=== PATIENT | male | born 1995 | race African-American/Black ===

== ENCOUNTER 2025-03-15 14:51 | Inpatient (IN) | payer MEDICAID ==
[~2025-03-15] VITALS: Ht 172.7 cm; Wt 113.6 kg
--- NOTE | 2025-03-15 15:13 | Physician Documentation ---
History of Present Illness ~ Chief Complaint: Seizure Stated Complaint: SEIZURE Time Seen by MD: 15:01 OK to notify your PCP?: Yes Source: patient Mode of Arrival: POV Exam Limitations: no limitations HPI Patient presents via EMS after witnessed seizure-like activity lasting approximately 10 seconds. He admits to smoking marijuana but no other drug use. No history of seizures. Was combative in ambulance. On arrival awake and alert, confused. Patient does not remember motion any events from today. Unable to answer further questions. Medication Reconciliation Allergies: Coded Allergies: No Known Allergies (Unverified , 03/15/25) Miscellaneous Medications Home Med List (No Home Medications), (Reported) Past Medical History Past Medical History: No Pertinent History Past Surgical History: no surgical history Alcohol Use: None Drug Use: marijuana, methamphetamine Lives In: Home Occupation: employed Unable to obtain complete PMH: altered mental status, dementia, intubated Review of Systems ROS Patient brought in secondary to seizure activity as noted in HPI. No previous history. Had a postictal period. No fevers, chills. Denies head pain. Comp lained of lower back pain as noted in HPI. Otherwise, review of systems is negative. Unable to obtain complete ROS: altered mental status Physical Exam Vital Signs: Temperature: 98.6, Source: Oral, Heart Rate: 90, Respiratory Rate: 16, BP: 142/95, Pulse Oximetry: 98, Weight: 113.640 Oxygen Flow Rate: 0 Pulse Oximetry Reflects: adequate oxygenation Physical Exam General: Awake. Appears disoriented. Speaking in full sentences. No respiratory distress. Neck: Supple. Normal range of motion. Back: [place] complaining of mid back pain on palpation. Respiratory: Lungs are clear to auscultation bilaterally. No respiratory distress. Chest: Normal shape and size. No accessory muscle use. Cardiovascular: Regular rate and rhythm. S1-S2. No murmur, gallop, rub. Gastrointestinal: Abdomen is soft. Nontender to palpation. Bowel sounds present. Extremities: No lower extremity edema, cyanosis or clubbing. Back: generalized lumbar back pain. Neurologic: Oriented to self. Confused to events. He knows he is [facility]. Unable to follow directions to check for nystagmus. Moving all extremities. Psychiatric: Normal mood and affect. Skin: Normal color. Warm and dry. Progress Progress Note Patient's girlfriend arrived at 1518: She states that this morning at about 630 he had seizure-like activity while asleep in bed. He woke up after the seizure like activity and was awake and oriented, but girlfriend states he was unable to walk. He had another seizure just prior to calling EMS. This second episode he did not wake up from right away, prompting them to call EMS. 154: Lactic acid came back at 4.2. [place] [address]. 30 mL/kilogram IV fluids ordered. 1899: Has had no further seizures. Awaiting repeat lactate which was drawn 1944: Patient had remained stable throughout ER stay. Discussing discharge with f/up. Patient then began having a tonic clonic like seizure. Lasted less than 1 min. Given 2 mg IV Ativan. He was postictal after. Keppra ordered. BG normal. 2014: Patient got up out of bed on his own. He was still confused. Assisted back to bed. 2034: Patient began yelling about wanting to get up. Unable to answer questions. Not making eye contact. He was given ativan. Monitoring closely. Awaiting neuro consult (tele). Results/Orders Results/Orders Orders - ZORAIDA WHITTAKER CIRCUIT [employer]ARD [employer]SEMBLER Ct Head (03/15/25 15:05) Ct Lumbar Spine (03/15/25 15:16) * Restraint Order/Renewal * (03/15/25 20:42) Page Hospitalist (03/15/25 20:59) Fill Out Med Reconciliation (03/15/25 20:59) Completed Orders - ZORAIDA WHITTAKER NP Cbc/Diff (03/15/25 15:05) BMP (03/15/25 15:05) Procalcitonin (03/15/25 15:05) LA (03/15/25 15:05) Ct Head (03/15/25 15:05) Ct Lumbar Spine (03/15/25 15:16) Oxycodone/Acetaminophen Tablet (Percocet (03/15/25 15:20) Urinalysis, Cult If Indicated (03/15/25 15:30) Drug Screen, Urine (03/15/25 15:30) Normal Saline 1000ml (0.9% Sodium Chlori (03/15/25 15:45) Normal Saline 1000ml (0.9% Sodium Chlori (03/15/25 15:50) Normal Saline 1000ml (0.9% Sodium Chlori (03/15/25 15:50) Lactic,2hr (03/15/25 16:45) Stat Ekg (03/15/25 ) Lorazepam Inj (Ativan Inj) (03/15/25 19:45) Lorazepam Inj (Ativan Inj) (03/15/25 20:35) Hgb A1c (03/15/25 15:00) Vital Signs 03/15/25 03/15/25 03/15/25 03/15/25 14:53 15:46 15:48 15:51 Temp 98.6 97.9 Pulse 90 84 Resp 16 16 16 B/P (MAP) 142/95 147/84 (105) Pulse Ox 98 97 97 O2 Delivery Room Air* O2 Flow Rate 0 0 0 FiO2 21 03/15/25 03/15/25 03/15/25 03/15/25 16:10 17:00 17:30 18:45 Pulse 74 79 57 67 Resp 13 19 16 18 B/P (MAP) 142/95 (111) 128/67 (87) 172/88 (116) 150/80 (103) Pulse Ox 93 95 94 95 03/15/25 03/15/25 03/15/25 03/15/25 19:00 19:47 19:48 20:38 Pulse 107 Resp 22 23 24 18 B/P (MAP) 167/76 (106) Pulse Ox 97 O2 Flow Rate 2.0 03/15/25 03/15/25 20:46 21:44 Pulse 97 86 Resp 20 18 B/P (MAP) 140/65 (90) 150/85 (106) Pulse Ox 99 100 Laboratory Tests Test 03/15/25 15:00 03/15/25 15:10 03/15/25 15:20 03/15/25 18:39 White Blood Count 12.6 H Red Blood Count 4.67 L Hemoglobin 13.3 L Hematocrit 40.7 L Mean Corpuscular Volume 87.3 Mean Corpuscular Hemoglobin 28.5 Mean Corpuscular Hemoglobin Concent 32.7 L Red Cell Distribution Width 13.6 Platelet Count 261 Mean Platelet Volume 8.1 Neutrophils (%) (Auto) 81.1 H Lymphocytes (%) (Auto) 11.7 L Monocytes (%) (Auto) 6.6 Eosinophils (%) (Auto) 0.1 Basophils (%) (Auto) 0.5 Neutrophils # (Auto) 10.2 H Lymphocytes # (Auto) 1.5 Monocytes # (Auto) 0.8 Eosinophils # (Auto) 0.0 Basophils # (Auto) 0.1 CBC Comment Sodium Level 139 Potassium Level 4.2 Chloride Level 102 Carbon Dioxide Level 27.5 Anion Gap 10 Blood Urea Nitrogen 7 Creatinine 1.18 H Estimated GFR/1.73 m2 74 BUN/Creatinine Ratio 5.9 L Glucose Level 102 Hemoglobin A1c 5.2 Lactic Acid Level 4.2 *H 1.2 Calcium Level 8.7 Albumin 3.7 Procalcitonin < 0.05 Chemistry Comments Glucometer 84 Urine Specimen Description Cln catch midstream Urine Color Yellow Urine Clarity Clear Urine pH 7.0 Urine Specific [place] 1.020 Urine Protein Negative Urine Glucose (UA) Negative Urine Ketones Negative Urine Occult Blood Negative Urine Nitrite Negative Urine Bilirubin Negative Urine Urobilinogen 0.2 Urine Leukocyte Esterase Negative Urine Culture Indicated Not ind Volume Urine Centrifuged 10 ml Urine Comment Urine Opiates Screen Negative Urine Methadone Screen Negative Urine Fentanyl Screen Negative Urine Barbiturates Screen Negative Urine Phencyclidine Screen Negative Urine Amphetamines Screen Positive H Urine Benzodiazepines Screen Negative Urine Cocaine Screen Negative Urine Cannabinoids Screen Positive H Drug Screen Comment Test 03/15/25 19:40 Glucometer 136 H EKG/XRAY/CT/US/VASC/MRI CT : Interpreted By: radiologist With Contrast?: No Impression [place] [id number] CAT SCAN Patient: MANDY BRADLEY Medical Record: [id number] [facility] 1995, Age: 29 Sex: Male Location: ER Patient Status: REG ER Service Date/Time: 03/15/251515 Ordering Physician: KANDYBE, ZORAIDA A CIRCUIT [employer]ARD [employer]SEMBLER Exam: CT LUMBAR SPINE CLINICAL INFORMATION: Lumbar back pain. TECHNIQUE: Axial CT images of the lumbar spine were obtained without IV contrast. Coronal and sagittal reformatted images were obtained, reviewed, and stored. One or more of the following dose reduction techniques were used: Automated exposure control. Adjustment of mA and/or kV according to patient size. CTDIvol = 34.79 mGy DLP = 1187.42 mGy-cm COMPARISON: None FINDINGS: Vertebral body alignment is within normal limits. Vertebral body heights are maintained. Posterior elements are intact. No acute fracture. Paraspinal soft tissues are unremarkable. Lumbar disc levels: L1-L2: No significant disc/facet abnormality. No significant spinal canal or neural foraminal stenosis. L2-L3: No significant disc/facet abnormality. No significant spinal canal or neural foraminal stenosis. L3-L4: Mild disc bulge mildly indenting the ventral aspect of the thecal sac. No significant spinal canal stenosis. No significant neural foraminal stenosis. L4-L5: Mild disc bulge mildly indenting the ventral aspect of the thecal sac. No significant spinal canal stenosis. Facet hypertrophy with mild bilateral neural foraminal stenoses. L5-S1: Moderate disc space narrowing. Minimal disc bulge. No significant spinal canal stenosis. Facet hypertrophy with mild bilateral neural foraminal stenoses. IMPRESSION: 1. No evidence of acute fracture or spondylolisthesis. 2. Mild disc bulges in the lumbar spine without significant spinal canal stenosis. Correlate with clinical findings. If clinically indicated, MRI could be considered to further evaluate. 3. Neural foraminal stenoses as described above. Electronically Signed by:GER HERRON DO Date & Time: 03/15/251611 Dictated by: GER HERRON DO Dictation date and time: 03/15/25 161 Primary Care Provider: NO PRIMARY CARE PROVIDER cc: ZORAIDA WHITTAKER [employer]ARD [employer]SEMBLER ~ [address] [id number] CAT SCAN Patient: MANDY BRADLEY Medical Record: [id number] [facility] 1995, Age: 29 Sex: Male Location: ER Patient Status: [facility] ER Service Date/Time: 03/15/251504 Ordering Physician: ZORAIDA WHITTAKER NP Exam: CT HEAD CLINICAL HISTORY: new seizure/altered LOC TECHNIQUE: Helical imaging carried out from skull base to vertex without intravenous contrast. This exam was performed according to our departmental dose optimization program. Up-to-date CT equipment and radiation dose reduction techniques are utilized as appropriate. CTDIVol: 69.6 mGy DLP: 1173.3 mGy-cm WID: COMPARISON: None FINDINGS: The ventricles and subarachnoid spaces are normal in size and configuration. There is no midline shift or mass effect. The lopez white matter interfaces are maintained. The basal cisterns are patent. There is no evidence of acute intr acranial hemorrhage or extra-axial fluid collection. The mastoid air cells and visualized paranasal sinuses are well-aerated aside from a small mucous retention cyst or polyp in the left maxillary sinus. IMPRESSION: 1. No acute intracranial abnormality. Electronically Signed by:DEEPA CATHERINE MD Date & Time: 03/15/251641 Dictated by: DEEPA CATHERINE MD Dictation date and time: 03/15/251641 Primary Care Provider: NO PRIMARY CARE PROVIDER cc: ZORAIDA WHITTAKER [employer]BLER ~ Medical Decision Making Findings She presented from home after seizure with no previous seizure diagnosis. Therefore, head CT was obtained that did not show any acute intracranial abnormalities. He was also complaining of back pain which a lumbar spine CT was obtained without any acute abnormalities found. Patient initially admitted to marijuana use. After toxicology screen it was determined that he also uses methamphetamine. The girlfriend states that he last used four days ago. He remained hemodynamically stable throughout most of his ER visit. His lactic acid was elevated which is consistent with his reported history of seizure activity. PVC count was elevated also consistent more with a reactive process given his seizure activity. He was awake and alert and oriented during his initial evaluation. He became somewhat more somnolent. He did wake up and answer yes or no questions but went back to sleep very easily. Considering discharge given isolated seizure activity however patient then had a generalized tonic-clonic seizure that was witnessed by staff. He was treated with Ativan. Neurology consultation will be obtained. Was evaluated on multiple occasions prior to the seizure activity in the hospital and was hemodynamically stable and resting comfortably and awakened. After noted above seizure patient was re-evaluated on multiple occasions and did require a bedside sitter to keep him safe. He required two additional doses of Ativan for combative behavior. He was monitored on telemetry. Had episodes of bradycardia with apnea. He was placed on oxygen. He will be monitored closely. Suspect underlying obstructive sleep apnea given obesity. Seizure etiology is unclear at this time. We will require further evaluation/admission for monitoring. The very real possibility of a deterioration of this patient's condition required the highest level of my preparedness for sudden, emergent intervention. I provided critical care services, which included medication orders, frequent reevaluations of the patient's condition and response to treatment, ordering and reviewing test results, and discussing the case with necessary consultants. Critical care time was exclusive of necessary procedure time. The critical care time associated with the care of the patient was 45 minutes. Differential Dx:Considerations: Include: Due to alcohol withdrawl, Anticonvulsant withdrawl, Due to closed head injury, Due to CVA/TIA, Due to drug ingestion, Due to hypocalcemia, Due to hypoglycemia, Due to hyponatremia, Due to hypoxemia, Idiopathic, Due to mass lesion, Due to meningitis Departure Time of Disposition: 21:12 Disposition: ADMITTED INPATIENT Admitted to Inpatient Unit: yes, to hospitalist Admission Level of Care: Neuro with Tele Impression: Primary Impression: Seizure disorder Additional Impression: Methamphetamine abuse Condition: Guarded Discharge Instructions: Seizure, Adult Referrals: NO PRIMARY CARE PROVIDER (PCP) Signature Scribe Signature: No scribe Attestation: The note accurately reflects work and decisions made by me.Zoraida Whittaker - JACQUIE 03/16/25 19:32 ZORAIDA WHITTAKER NP Mar 15, 2025 15:13
[2025-03-15 15:15] LABS: MEAN PLATELET VOLUME 8.1 FL (7.4-10.4); RED CELL DISTRIBUTION WIDTH 13.6 % (11.5-14.5)
[2025-03-15 15:21] LABS: CREATININE 1.18 MG/DL (0.60-1.10); TOTAL CARBON DIOXIDE 27.5 MMOL/L (24-32); eCRCL 90 ML/MIN; eGFR 74 ML/MIN
[2025-03-15] MEDS: oxyCODONE/APAP 5-325mg tablet PO ONE (15:38)
[2025-03-15] MEDS: normal saline 1000ML IV soln IVB ONE ×3 (15:50→19:47)
[2025-03-15 15:52] LABS: LEUKOCYTE ESTERASE ,URINE NEGATIVE (Neg); NITRITES, URINE NEGATIVE (Neg); OCCULT BLOOD,URINE NEGATIVE (Neg)
[2025-03-15 15:57] LABS: UA COLLECTION TYPE CLN CATCH MIDSTREAM
[2025-03-15 16:01] LABS: URINE AMPHETAMINE SCREEN POSITIVE (Neg); URINE BARBITUATE SCREEN NEGATIVE (Neg); URINE BENZODIAZEPINES SCREEN NEGATIVE (Neg); URINE CANNABINOID SCREEN POSITIVE (Neg); URINE COCAINE SCREEN NEGATIVE (Neg); URINE METHADONE SCREEN NEGATIVE (Neg); URINE OPIATE SCREEN NEGATIVE (Neg); URINE PHENCYCLIDINE SCREEN NEGATIVE (Neg)
--- NOTE | 2025-03-15 16:15 | RADIOLOGY REPORT ---
CLINICAL INFORMATION: Lumbar back pain. TECHNIQUE: Axial CT images of the lumbar spine were obtained without IV contrast. Coronal and sagittal reformatted images were obtained, reviewed, and stored. One or more of the following dose reduction techniques were used: Automated exposure control. Adjustment of mA and/or kV according to patient size. CTDIvol = 34.79 mGy DLP = 1187.42 mGy-cm COMPARISON: None FINDINGS: Vertebral body alignment is within normal limits. Vertebral body heights are maintained. Posterior elements are intact. No acute fracture. Paraspinal soft tissues are unremarkable. Lumbar disc levels: L1-L2: No significant disc/facet abnormality. No significant spinal canal or neural foraminal stenosis. L2-L3: No significant disc/facet abnormality. No significant spinal canal or neural foraminal stenosis. L3-L4: Mild disc bulge mildly indenting the ventral aspect of the thecal sac. No significant spinal canal stenosis. No significant neural foraminal stenosis. L4-L5: Mild disc bulge mildly indenting the ventral aspect of the thecal sac. No significant spinal canal stenosis. Facet hypertrophy with mild bilateral neural foraminal stenoses. L5-S1: Moderate disc space narrowing. Minimal disc bulge. No significant spinal canal stenosis. Facet hypertrophy with mild bilateral neural foraminal stenoses. IMPRESSION: 1. No evidence of acute fracture or spondylolisthesis. 2. Mild disc bulges in the lumbar spine without significant spinal canal stenosis. Correlate with clinical findings. If clinically indicated, MRI could be considered to further evaluate. 3. Neural foraminal stenoses as described above.
--- NOTE | 2025-03-15 16:45 | RADIOLOGY REPORT ---
CLINICAL HISTORY: new seizure/altered LOC TECHNIQUE: Helical imaging carried out from skull base to vertex without intravenous contrast. This exam was performed according to our departmental dose optimization program. Up-to-date CT equipment and radiation dose reduction techniques are utilized as appropriate. CTDIVol: 69.6 mGy DLP: 1173.3 mGy-cm WID: COMPARISON: None FINDINGS: The ventricles and subarachnoid spaces are normal in size and configuration. There is no midline shift or mass effect. The lopez white matter interfaces are maintained. The basal cisterns are patent. There is no evidence of acute intracranial hemorrhage or extra-axial fluid collection. The mastoid air cells and visualized paranasal sinuses are well-aerated aside from a small mucous retention cyst or polyp in the left maxillary sinus. IMPRESSION: 1. No acute intracranial abnormality.
--- NOTE | 2025-03-15 19:14 | ELECTROCARDIOGRAPH REPORT ---
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
[2025-03-15] MEDS: levetiracetam-NACL1000mg/100ml 100 ML IV SCH (19:53)
[2025-03-15] MEDS ORDERED: potassium Cl 40MEQ/1/2NS 520ml 520 ML IV PRN (22:10)
[2025-03-15] MEDS ORDERED: ondansetron/PF 4mg/2ml inj IV PRN (22:10)
[2025-03-15] MEDS ORDERED: magnesium sulf-water 2g/50mL 50 ML IV PRN (22:10)
[2025-03-15] MEDS ORDERED: mag hydrox/Alum hydrox/simeth 30ml oral suspension PO PRN (22:10)
[2025-03-15] MEDS ORDERED: HYDROcodone/acetaminophen 10/325mg tab PO PRN (22:10)
[2025-03-15] MEDS ORDERED: magnesium Cl slow-release 64mg tablet PO PRN (22:10)
[2025-03-15] MEDS ORDERED: HYDROcodone/acetaminophen 5mg/325mg tablet PO PRN (22:10)
[2025-03-15] MEDS ORDERED: magnesium sulf-water 4G/100mL 100 ML IV PRN (22:10)
[2025-03-15] MEDS ORDERED: magnesium hydroxide 30ml (MOM) UD suspension PO PRN (22:10)
[2025-03-15] MEDS ORDERED: potassium Cl 20 mEq SR tablet PO PRN (22:10)
[2025-03-15] MEDS: haloperidol lactate 5mg/ml inj IM ONE (22:13)
[2025-03-15] MEDS: haloperidol lactate 5mg/ml inj ONE (22:13)
--- NOTE | 2025-03-15 22:30 | HISTORY AND PHYSICAL-Residence ---
History & Physical Providers to CC Resident Creating Document: DOMINGOTOSHANIKOLAS ~ History of Present Illness Reason for Admit\Complaint: seizures History of Present Illness 29-year-old male presents via EMS after witnessed seizure-like activity lasting approximately 10 seconds. He admits to smoking marijuana but no other drug use. No history of prior seizures. Was combative in ambulance. On arrival awake and alert, confused. Patient does not remember motion any events from today. Unable to answer further questions. Patient had another episode of seizures in the ED that was witnessed by the nursing staff present there, lasted for about 30 seconds to a minute, associated with tongue biting and urinary incontinence. During the time of my examination patient was severely agitated, was put on restraints, and was given Haldol 5 mg. Neurology was consulted. Allergies: Coded Allergies: No Known Allergies (Unverified , 03/15/25) Past Medical History Past Medical History Was unable to obtain from the patient but as per the ED records patient has no significant past medical history Past Surgical History Surgical History Comment Who was unable to obtain from the patient, but as per the ED record no significant surgical history Past Social History Social History Comment Marijuana use Methamphetamine use Could not get history about his alcohol and smoking. Alcohol Use: None Drug Use: Marijuana, Methamphetamine Lives In: Home Occupation: employed ROS ROS Not able to get information from the patient. Unable to obtain: altered mental status, dementia, intubated Exam Vitals: Vital Signs Date Time Temp Pulse Resp B/P (MAP) Pulse Ox O2 Delivery O2 Flow Rate FiO2 03/15/25 22:13 16 03/15/25 21:44 86 150/85 (106) 100 03/15/25 19:48 2.0 03/15/25 15:48 Room Air* 21 03/15/25 15:46 97.9 General: General: Awake. Appears disoriented. Patient was on restraints severely agitated Neck: Supple. Normal range of motion. Back: complaining of mid back pain on palpation. Respiratory: Lungs are clear to auscultation bilaterally. No respiratory distress. Chest: Normal shape and size. No accessory muscle use. Cardiovascular: Regular rate and rhythm. S1-S2. No murmur, gallop, rub. Gastrointestinal: Abdomen is soft. Nontender to palpation. Bowel sounds present. Extremities: No lower extremity edema, cyanosis or clubbing. Back: generalized lumbar back pain. Neurologic: Oriented to self. Confused to events. He knows he is in the hospital. Unable to follow directions to check for nystagmus. Moving all extremities. Psychiatric: Agitated Skin: Normal color. Warm and dry. Diagnostic Data Last Recorded Lab Results: 03/15/25 1500 03/15/25 1500 Advance Care Planning Advanced Care plannin - 30 Minutes (Full code) Additional Plan Seizures- Under evaluation Patient has 2 episodes of tonic-clonic movements Vitals stable Electrolytes, glucose normal Procalcitonin normal Initial lactic acid was elevated, came back to normal CT head-no acute intracranial abnormalities Neurology was consulted, as per their recommendations MRI with and without contrast ordered. Follow-up Keppra loading dose 20 mg/kg, continue 500 mg b.i.d. Valium 5 mg q.2h p.r.n. EEG, echocardiogram ordered follow-up. Patient on restraints. Fall precautions in place Swallow study ordered. Substance use disorder- U tox positive for cannabis and methamphetamines. Substance use navigator consulted. Code status: Full code DVT prophylaxis: SubQ heparin Pain management: Morphine 1 mg/2 mg p.r.n. Diet/nutrition: Regular Prognosis: Guarded Tosha Campa PGY-1 Date of Service: Mar 15, 2025 Billing Provider: KENYON LAMBERT MD Addendum Attestation I agree with the residents assessment and plan as below: 29 year old admitted with a seizure Plan: continue keppra neurology consult mri brain EEG ordered CCT 52 min using HIPPA compliant A/V technology TOSHA CAMPA, RES Mar 15, 2025 22:30 KENYON LAMBERT MD Mar 16, 2025 08:44
--- NOTE | 2025-03-15 22:44 | [facility] CONSULT REPORT ---
[facility] Procedure Note [facility] Procedure Note Consult [facility] # Demographics Consult Type: General Neurology Patient Location: Emergency Room First Name: karen Last Name: miya Date of : 1995 Age: 29 Gender: Male Facility: [facility] Time of Initial Page (): 03/15/2025 22:27 First Contact with Site (): 03/15/2025 22:28 # HPI Chief Complaint: - seizure History: 29M p/w new onset seizure. It was generalized convulsion lasted about 10s. He returned to baseline after the first seizure. Then in the ER, he had 2nd seizure lasting 30s-1 min. It was associated with tongue biting and urinary incontinence. He became agitated afterwards and was treated with Ativan. Now he's lethargic. Utox is positive for amphetamine. # Exam Mental Status: - lethargic Open eyes with voice, does not follow commands Language: Minimal verbal output Cranial Nerves: - extra ocular movements intact - no facial droop Motor: Moves all 4 limbs spontaneously # ROS Unable to obtain ROS: - altered mentation # Data Head CT: - no bleed # Assessment Impression: - New onset seizure could be provoked 2/2 amphetamine use, however given 2 seizures today and still post-ictal, will start ASM to prevent going into status # Plan Imaging: (urgency: routine): - MRI Brain with AND without contrast Diagnostic Test: - EEG Medication: Load Keppra 20 mg/kg, then cont 500 mg BID Other: - If patient has any neurological deterioration please call me back immediately - telemetry monitoring - seizure precautions - I have discussed my recommendations with the referring provider - neurology referral as outpatient # Logistics Attestation of consult completion: The patient is located at: [facility]. Facility staff participated in the visit. I performed this telemedicine visit from my offsite office utilizing interactive 2 way audio and visual telecommunication technology at the request of the onsite emergency room provider. Total time spent in telemedicine encounter: I spent 15 minutes reviewing clinical data and/or imaging, obtaining history, examining the patient, communicating with the onsite care team, and in preparation of this report. # Demographics First Name: karen Last Name: miya Facility: [facility] Electronically signed at 03/15/2025 22:43 () by Dar Walden MD Neuro Consult Order placed for: Yes DAR WALDEN MD Mar 15, 2025 22:44
[2025-03-15] MEDS ORDERED: diazepam inj 5 MG/ML inj. IV PRN (23:20)
[2025-03-15 23:25] VITALS: BP 134/69; PULSE 85; RESP 16; TEMP 97.5; O2SAT 96
[2025-03-16] VITALS (8 sets, daily range): BP systolic 109–142; BP diastolic 60–82; PULSE 57–94; RESP 18–27; TEMP 97.9–100; O2SAT 95–100
[2025-03-16] MEDS: Levetiracetam-NACL 500mg/100ml 100 ML IV ONE ×2 (00:25→00:26)
[2025-03-16] MEDS: haloperidol lactate 5mg/ml inj IM PRN (00:49)
[2025-03-16] MEDS: diazepam inj 5 MG/ML inj. IV PRN (02:28)
[2025-03-16] MEDS: docusate sod 100mg capsule PO SCH (08:00)
[2025-03-16] MEDS: K and/or MAG REPLACEMENT MC SCH (08:00)
[2025-03-16] MEDS: heparin, porcine 5000 units/ml vial SQ SCH (10:00)
[2025-03-16] MEDS: Levetiracetam-NACL 500mg/100ml 100 ML IV SCH (12:45)
[2025-03-16] MEDS ORDERED: NO HOME MEDS (14:56)
--- NOTE | 2025-03-16 16:58 | RADIOLOGY REPORT ---
EXAM: MR MRI HEAD INDICATION: Seizure TECHNIQUE: Multiplanar, multisequence imaging of the brain without contrast. COMPARISON: CT CT HEAD on DOS: 03/15/25 FINDINGS: [PARENCHYMA]: No acute infarct or hemorrhage. No mass effect or herniation. No abnormal susceptibility weighted artifact. [VENTRICLES]: No hydrocephalus. [EXTRA-AXIAL SPACES]: No extra-axial fluid collections. [FLOW VOIDS]: The flow voids are intact. [EXTRA-CRANIAL STRUCTURES]: The bony structures are intact. Visualized portions of the paranasal sinuses and mastoid air cells are essentially clear. IMPRESSION: 1. No MR evidence of an acute intracranial abnormality.
--- NOTE | 2025-03-16 18:30 | PROGRESS NOTE ---
Daily Progress Note Providers to CC ~ Antibiotic Timeout Antibiotic Ordered?: No Subjective Patient was seen in PCU in presence of nursing staff patient very lethargic unable to respond to verbal commands . Objective Vital Signs Date Time Temp Pulse Resp B/P (MAP) Pulse Ox O2 Delivery O2 Flow Rate FiO2 03/16/25 11:00 99.1 57 27 142/70 (94) 95 Room Air 03/16/25 08:00 21 03/15/25 19:48 2.0 Result Diagram: 03/15/25 1500 03/15/25 1500 General-patient not in any acute distress, ill-appearing, obese, lethargic HEENT-atraumatic normocephalic, neck supple without elevated JVD, No lymphadenopathy bilaterally. Eyes-no icterus or pallor seen in eyes, pinpoint pupils bilaterally Chest-clear to auscultation bilaterally, breathing nonlabored no tachypnea, no wheezing, no crepitation, no crackles. Heart-S1-S2 normal, regular heart rate no murmur Abdomen bowel sounds positive on auscultation, soft nondistended nontender no guarding, no rigidity Skin no active skin rash Neurology-lethargic unable to cooperate during physical exam Extremity- no pedal edema Problem\Assessment\Plan Seizures episodes Patient has 2 episodes of tonic-clonic movements Vitals stable Electrolytes, glucose normal Procalcitonin normal Initial lactic acid was elevated, came back to normal CT head-no acute intracranial abnormalities Neurology was consulted, as per their recommendations MRI with and without contrast ordered. Follow-up Keppra loading dose 20 mg/kg, continue 500 mg b.i.d. Valium 5 mg q.2h p.r.n. EEG, echocardiogram ordered follow-up. Patient on restraints. Fall precautions in place Swallow study ordered. Substance use disorder- U tox positive for cannabis and methamphetamines. Substance use navigator consulted. Code status: Full code DVT prophylaxis: SubQ heparin Pain management: Morphine 1 mg/2 mg p.r.n. Diet/nutrition: Regular Current condition is guarded we will continue to follow patient in AM Date of Service: Mar 16, 2025 Billing Provider: KYLEE GUZMAN MD Common Visit Codes: [id number] INP/OBS CARE(HIGH) KYLEE GUZMAN MD Mar 16, 2025 18:30
[2025-03-16] MEDS ORDERED: morphine 4 MG/ML inj SYRINge IV PRN (20:19)
[2025-03-17] VITALS (7 sets, daily range): BP systolic 121–149; BP diastolic 62–80; PULSE 85–92; RESP 12–26; TEMP 97.8–98.9; O2SAT 97–100
[2025-03-17] MEDS ORDERED: DEXTROSE 15 GM of carb/4 tabs (each vial/BOTTLE has 4 tablets) PO PRN ×2 (05:40)
[2025-03-17] MEDS ORDERED: dextrose 50%-water 50ml dispensing syringe IV PRN (05:40)
[2025-03-17] MEDS ORDERED: glucagon, human recombinant 1mg kit SUBCUT PRN (05:40)
[2025-03-17] MEDS: dextrose 50%-water 50ml dispensing syringe IV PRN (05:52)
[2025-03-17 06:21] LABS: MEAN PLATELET VOLUME 8.4 FL (7.4-10.4); RED CELL DISTRIBUTION WIDTH 13.7 % (11.5-14.5)
[2025-03-17 06:57] LABS: CREATININE 1.03 MG/DL (0.60-1.10); TOTAL CARBON DIOXIDE 27.3 MMOL/L (24-32); eCRCL 102 ML/MIN; eGFR > 90 ML/MIN
[2025-03-17] MEDS: potassium Cl 20 mEq SR tablet PO PRN (08:48)
--- NOTE | 2025-03-17 09:54 | ELECTROCARDIOGRAPH REPORT ---
[facility] Test Date: 2025-03-15 Test Time: 14:54:01 Pat Name: MANDY BRADLEY Department: EMERGENCY ROOM Room: [place] [address] A Gender: M Counter Maker: PAZ : 1995 Requested By: KYLEE GUZMAN Order Number: [id number] Reading MD: Measurements Intervals Winston Rate: 94 P: 55 MS: 150 QRS: 55 QRSD: 102 T: 82 QT: 345 QTc: 432 Interpretive Statements Sinus rhythm Please click the below link to view image of tracing.
--- NOTE | 2025-03-17 12:12 | PROCEDURE NOTE ---
Procedure Note Providers to CC ~ Description: [place] EEG Note # Demographics Type of EEG Read: - Routine EEG - video Patient Location: Inpatient First Name: Daniel Last Name: Jd Date of : 1995 Age: 29 Gender: Male Facility: [facility] Time of Initial Page (): 03/17/2025 11:54 First Contact with Site (): 03/17/2025 11:54 # EEG Interpretation Start Time of EEG Read (): 03/17/2025 11:36 Stop Time of EEG Read (): 03/17/2025 11:57 Duration: 0h 21m Technical Details: - The EEG electrodes were placed using the standard International 10-20 system of electrode placement. Video and an accessory EKG lead were used during the course of this study. - This study was recorded using the [employer] EEG software Indication: - seizure # Description Photic Stimulation: NOT Performed Hyperventilation: NOT performed Phases Captured: - drowsy - sleep Symmetry: symmetric Posterior Dominant Rhythm: absent Predominant Frequencies: - delta (2-3 Hz) - abundant (50-89%) Superimposed Frequencies: - beta (>15 Hz) - abundant (50-89%) Amplitude: normal Reactivity: unclear Variability: yes Continuity: continuous EKG: NSR # Abnormalities Epileptiform Abnormalities: - NOT present Focal Slowing: no Seizure: - NOT present # Impression Impression: abnormal Diffuse Slowing Excess Beta # Clinical Correlation Clinical Correlation: Diffuse slowing is non-specific and may be seen in the setting of diffuse cerebral dysfunction; such as toxic/metabolic/infectious encephalopathy or heavily sedating medication use. Excess beta is a non-specific finding but may be seen in the setting of Benzodiazepine or Barbiturate use # Logistics Telemedicine: remote EEG review: EEG reviewed remotely # Demographics First Name: Daniel Last Name: Jd Facility: [facility] MERRICK ROBERTS MD Mar 17, 2025 12:12
--- NOTE | 2025-03-17 19:01 | CARDIOLOGY REPORT ---
APPROVED REPORT EXAM: Comprehensive 2D, Doppler, and color-flow Echocardiogram. Patient Location: 3[address] Heart Rate: 80's bpm Rhythm: SINUS Indications VALVULAR HEART DISEASE METH USE Orbitread Operator: NONE Previous echo: NONE 2D Dimensions RVDd 3.4 cm LA Diam 3.3 cm IVSd 1.0 (0.7-1.1cm) LVDd 4.6 cm PWd 1.0 (0.7-1.1cm) RA Major 4.2 cm IVSs 1.2 (0.8-1.2cm) RA Minor 5.0 cm LVDs 2.8 (2.5-4.0cm) PWs 1.2 (0.8-1.2cm) LVOT Diameter 2.31 (1.8-2.4cm) LVEF(%) 69.1 (>50%) FS (%) 38.7 % SV 70.2 ml CO 6.3 L/min M-Mode Dimensions Aortic Root 3.04 (2.2-3.7cm) Aortic Cusp Exc 2.05 (1.5-2.0cm) Aortic Valve AoV Peak Robert. 154.2 cm/s AoV VTI 25.2 cm AO Peak GR. 9.5 mmHg AO Mean GR. 4 mmHg LVOT VTI 23.48 cm LVOT Peak Robert. 121.3 cm/s EVER(VTI)/BSA 3.89 cm2/m2 EVER (VTI) 3.89 cm2 AV DI 0.93 % Mitral Valve MV E Velocity 97.2 cm/s MV Peak Gr. 5 mmHg MV DECEL TIME 264 ms MV A Velocity 61.2 cm/s MV PHT 64 ms E/A Ratio 1.6 MVA (PHT) 3.44 cm2 MV VMax 108.8 cm/s TDI Lateral E' P. V 11.55 cm/s E/Lateral E' 8.4 LEFT VENTRICLE Normal LV size and wall thickness. Overall systolic function is normal. LVEF is 65-70%. RIGHT VENTRICLE RV is mildly dilated with normal function. ATRIA The left atrium size is normal. AORTIC VALVE Trileaflet AV appears normal without stenosis. Normal insufficiency. MITRAL VALVE Mild MV annular calcification without stenosis. Trace regurgitation. TRICUSPID VALVE TV appears structurally normal with trace regurgitation. PULMONIC VALVE Normal PV without stenosis, physiologic insufficiency. GREAT VESSELS The aortic root is normal in size. PERICARDIUM Normal pericardium. No effusion. Other Information Study Quality: Adequate but difficult subc window due to body habitus Conclusion Normal LV size and wall thickness. Overall systolic function is normal. LVEF is 65-70%. RV is mildly dilated with normal function. The left atrium size is normal. Trileaflet AV appears normal without stenosis. Normal insufficiency. Mild MV annular calcification without stenosis. Trace regurgitation. TV appears structurally normal with trace regurgitation. Normal pericardium. No effusion.
--- NOTE | 2025-03-17 19:25 | PROGRESS NOTE ---
Daily Progress Note Providers to CC ~ Antibiotic Timeout Antibiotic Ordered?: No Subjective Patient was still lethargic when I evaluated him today in a.m.. Later in evening nursing staff mentioned to me that he is eager to go home and he can ambulate. Physical therapy evaluation pending Objective Vital Signs Date Time Temp Pulse Resp B/P (MAP) Pulse Ox O2 Delivery O2 Flow Rate FiO2 03/17/25 11:00 98.5 88 26 138/78 (98) 99 Room Air 03/16/25 08:00 21 03/15/25 19:48 2.0 Result Diagram: 03/17/2552803/17/25528 General-patient not in any acute distress, ill-appearing, obese, less lethargic HEENT-atraumatic normocephalic, neck supple without elevated JVD, No lymphadenopathy bilaterally. Eyes-no icterus or pallor seen in eyes, pinpoint pupils bilaterally Chest-clear to auscultation bilaterally, breathing nonlabored no tachypnea, no wheezing, no crepitation, no crackles. Heart-S1-S2 normal, regular heart rate no murmur Abdomen bowel sounds positive on auscultation, soft nondistended nontender no guarding, no rigidity Skin no active skin rash Neurology-less lethargic , cooperated during physical exam Extremity- no pedal edema Problem\Assessment\Plan Seizures episodes Patient has 2 episodes of tonic-clonic movements Vitals stable Electrolytes, glucose normal Procalcitonin normal Initial lactic acid was elevated, came back to normal CT head-no acute intracranial abnormalities Neurology was consulted, as per their recommendations MRI with and without contrast ordered. Follow-up Keppra loading dose 20 mg/kg, continue 500 mg b.i.d. Valium 5 mg q.2h p.r.n. EEG, echocardiogram ordered follow-up. Patient on restraints. Fall precautions in place Swallow study ordered. Substance use disorder- U tox positive for cannabis and methamphetamines. Substance use navigator consulted. Code status: Full code DVT prophylaxis: SubQ heparin Pain management: Morphine 1 mg/2 mg p.r.n. Diet/nutrition: Regular Current condition is guarded we will continue to follow patient in AM Date of Service: Mar 17, 2025 Billing Provider: KYLEE GUZMAN MD Common Visit Codes: [id number] INP/OBS CARE(HIGH) KYLEE GUZMAN MD Mar 17, 2025 19:25
[2025-03-18 02:00] VITALS: BP 120/64; PULSE 90; RESP 14; TEMP 98.3; O2SAT 93
[2025-03-18 06:29] LABS: MEAN PLATELET VOLUME 8.3 FL (7.4-10.4); RED CELL DISTRIBUTION WIDTH 13.5 % (11.5-14.5)
[2025-03-18 06:49] LABS: CREATININE 0.95 MG/DL (0.60-1.10); TOTAL CARBON DIOXIDE 28.0 MMOL/L (24-32); eCRCL 111 ML/MIN; eGFR > 90 ML/MIN
[2025-03-18 07:00] VITALS: BP 133/77; PULSE 84; RESP 14; TEMP 96.9; O2SAT 99
[2025-03-18 11:00] VITALS: BP 136/74; PULSE 87; RESP 15; TEMP 98.6; O2SAT 99
--- NOTE | 2025-03-18 20:14 | DISCHARGE SUMMARY ---
Discharge Summary Providers to CC ~ Discharge Summary Admission Diagnosis: SEIZURES Hospital Course DATE OF ADMISSION: MARCH 15, 2025 DATE OF DISCHARGE:MARCH 18, 2025 CBC TESTING DONE ON MARCH 18, 2025 WBC 7.8 HEMOGLOBIN 12.6 HEMATOCRIT 38.1 PLATELET COUNT 231. Serum chemistry done on March 18, 2025 sodium 140 potassium 3.6 creatinine 0.95 GFR 90, hemoglobin A1c 5.2, procalcitonin less than 0.05 ECHOCARDIOGRAMConclusion Normal LV size and wall thickness. Overall systolic function is normal. LVEF is 65-70%. RV is mildly dilated with normal function. The left atrium size is normal. Trileaflet AV appears normal without stenosis. Normal insufficiency. Mild MV annular calcification without stenosis. Trace regurgitation. TV appears structurally normal with trace regurgitation. Normal pericardium. No effusion. MRI HEADIMPRESSION: 1. No MR evidence of an acute intracranial abnormality. CT LUMBAR SPINEIMPRESSION: 1. No evidence of acute fracture or spondylolisthesis. 2. Mild disc bulges in the lumbar spine without significant spinal canal stenosis. Correlate with clinical findings. If clinically indicated, MRI could be considered to further evaluate. 3. Neural foraminal stenoses as described above. CT HEADIMPRESSION: 1. No acute intracranial abnormality. Discharge Diagnosis\\Comment: Substance use disorder- U tox positive for cannabis and methamphetamines. Seizures like episodes Operations\\Procedures: None Consultants: Dr Nolan Schultz tele Neurology specialist [facility] Complications: None Condition on DC: Stable Discontinued Medications: Home Med List (No Home Medications) Each Discharge Summary: As per admitting provider's history and physical note " 29-year-old male presents via EMS after witnessed seizure-like activity lasting approximately 10 seconds. He admits to smoking marijuana but no other drug use. No history of prior seizures. Was combative in ambulance. On arrival awake and alert, confused. Patient does not remember motion any events from today. Unable to answer further questions. Patient had another episode of seizures in the ED that was witnessed by the nursing staff present there, lasted for about 30 seconds to a minute, associated with tongue biting and urinary incontinence. During the time of my examination patient was severely agitated, was put on restraints, and was given Haldol 5 mg. Neurology was consulted." Seizures like episodes Patient has 2 episodes of tonic-clonic movements Vitals stable Electrolytes, glucose normal Procalcitonin normal Initial lactic acid was elevated, came back to normal CT head-no acute intracranial abnormalities Neurology was consulted, as per their recommendations MRI with and without contrast ordered. Follow-up Keppra loading dose 20 mg/kg, continue 500 mg b.i.d. Valium 5 mg q.2h p.r.n. EEG done and does not show any seizure or epilepsy, echocardiogram ordered follow-up. Patient on restraints. Fall precautions in place Swallow study ordered. As per EEG report - Diffuse slowing is non-specific and may be seen in the setting of diffuse cerebral dysfunction; such as toxic/metabolic/infectious encephalopathy or heavily sedating medication use. Excess beta is a non-specific finding but may be seen in the setting of Benzodiazepine or Barbiturate use Substance use disorder- U tox positive for cannabis and methamphetamines. Substance use navigator consulted. Patient is feeling better she has been afebrile and getting discharged home in stable condition. Patient is seen and examined on the day of discharge in presence of his girlfriend. All labs, diagnostic workup and discharge plan discussed with patient and girlfriend in detail before her discharge. All questions and queries answered to the best of my professional medical knowledge. I heard patient's concerns and address appropriately. Patient was cleared by Physical therapy team for home discharge . manager [employer] involved in patient's discharge plan. Discharge instructions provided to the patient. Follow-up with PCP / urgent care , neurology specialist in outpatient setting in 1-2 weeks. Patient needs to get the referral for Neurology specialist from primary care physician. Strongly advised to stop recreational drug and risks explained. Weight loss and increase activity level recommended for obesity. General-patient not in any acute distress, ill-appearing, obese, not lethargic HEENT-atraumatic normocephalic, neck supple without elevated JVD, No lymphadenopathy bilaterally. Eyes-no icterus or pallor seen in eyes, pinpoint pupils bilaterally Chest-clear to auscultation bilaterally, breathing nonlabored no tachypnea, no wheezing, no crepitation, no crackles. Heart-S1-S2 normal, regular heart rate no murmur Abdomen bowel sounds positive on auscultation, soft nondistended nontender no guarding, no rigidity Skin no active skin rash Neurology-not lethargic , cooperated during physical exam. No focal neur ological deficit noticed he is able to ambulate normal gait. Extremity- no pedal edema *Problems/Diagnosis: (1) Methamphetamine abuse Status: Acute Total Time Spent on D/C: Up to 30 Minutes Date of Service: Mar 18, 2025 Billing Provider: KYLEE GUZMAN MD Common Visit Codes: 50487-ESH/OBS DISCH DAY >30min KYLEE GUZMAN MD Mar 18, 2025 20:07
== END 2025-03-18 12:37 | disposition home or self-care (01) | DRG 53 ==
LOC: ER 14:52 → EDBD 14:52 → ED HOLD 22:03 → EDBEDREQ 23:05 → PCU 3S 23:28
PROVIDERS: ADMIT Internal Medicine; ATTEND Internal Medicine
PROC: 4A00X4Z Measurement of Central Nervous Electrical Activity, External Approach (ICD-10-PCS; principal; 2025-03-17)
DX: G40.909 Epilepsy, unspecified, not intractable, without status epilepticus (principal); G92.8 Other toxic encephalopathy; Z78.1 Physical restraint status; F15.10 Other stimulant abuse, uncomplicated; E87.6 Hypokalemia; F12.10 Cannabis abuse, uncomplicated
CPT/HCPCS: 36415; 70450; 70551; 72131; 80048; 80053; 80305; 81003; 82948; 83036; 83605; 83735; 84145; 85025; 87081; 93005; 93306; 95816; 96365; 96375; 96376; 99291; A4615; A6258; A6590; C1758; G0378; J1630; J1644; J1953; J2060; J3360; J3490; J7030; J7040